=== PATIENT | female | born 1960 | race Caucasian/White ===

== ENCOUNTER → 2021-07-22 09:25 | Outpatient (CLI) | payer BC, SELFPAY ==
--- NOTE | ~2021-07-22 | MR_ITS ---
EXAMINATION: MR knee LT wo con DATE: 07/22/2021 10:35 INDICATION: Left knee pain TECHNIQUE: Magnetic resonance imaging (MRI) of the left knee was performed without intravenous contra st. Sequences included coronal PD-weighted FSE, coronal PD-weighted FS FSE, coronal fluid sensitive FSE STIR, sagittal T2-weighted FSE, sagittal PD-weighted FS FSE, sagittal PD-weighted FSE and axial PD weighted fat saturated FSE. COMPARISON: None. FINDINGS: Medial compartment: Medial meniscus is normal. Mild partial-thickness cartilage loss with chondral surface regularity cristiana ng the all but the posterior most weightbearing medial femoral condyle where the cartilage thickness is relatively preserved but there is deep chondral fissuring. There are few small foci of underlying increased marrow signal with the anterior and central weightbearing medial femoral condyle. Additiona l mild partial thickness cartilage loss along the medial tibial plateau with more focal deep chondral ulceration with underlying subarticular edema at the medial aspect of the medial tibial plateau. Lateral compartment: Lateral meniscus is normal. Articular cartilage is normal aside from small region of partial-thicknes s chondral fissuring without degenerative subchondral changes along the posterior margin of the later al tibial plateau. Patellofemoral compartment: Partial-thickness cartilage loss with deep fissuring at the medial tibial plateau. Shallow chondral s urface regularity at the patellar apical ridge and medial side of the lateral facet. Additional parti al thickness chondral fissuring and ulceration along the medial margin of the medial trochlea. Remain ing trochlear cartilage is normal. Ligaments and tendons: Anterior and posterior cruciate ligaments are normal. The medial collateral ligament and fibular tatianna ateral ligament complex are normal. The extensor mechanism is normal. The visualized medial and later al hamstring tendons as well as the iliotibial band are normal. Fluid: Small left knee joint effusion at the suprapatellar pouch. No loose osteochondral bodies identified. Osseous/other: Small bone island at the proximal tibia. Normal marrow signal separate previous noted small foci of s ubarticular edema at the weightbearing medial femoral condyle. No fracture or pathologic marrow repla cing process. Mild edema in the superficial suprapatellar fat pad which can be seen with fat pad impi ngement syndrome. IMPRESSION: 1. 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 2. Mild edema in the superficial suprapatellar fat pad which can be seen with fat pad impingement syn drome. Reviewed, dictated and finalized at location B. CHARGER IMPRESSION: 1. Mild medial compartment predominant tricompartmental osteoarthritis with mod erate and high-grade chondral malacia in the medial compartment and moderate gr mirian chondromalacia in the patellofemoral and lateral compartments. 2. Mild edema in the superficial suprapatellar fat pad which can be seen with f at pad impingement syndrome.
--- NOTE | ~2021-07-22 | MR_ITS ---
EXAMINATION: MR knee RT wo con DATE: 07/22/2021 10:53 INDICATION: Right knee pain TECHNIQUE: Magnetic resonance imaging (MRI) of the right knee was performed without intravenous contr ast. Sequences included coronal PD-weighted FSE, coronal PD-weighted FS FSE, coronal fluid sensitive FSE STIR, sagittal T2-weighted FSE, sagittal PD-weighted FS FSE, sagittal PD-weighted FSE and axial PD weighted fat saturated FSE. COMPARISON: 09/24/2016 FINDINGS: Medial compartment: Medial meniscus is normal. Partial-thickness cartilage loss with smooth chondral surface along the me dial tibial plateau and with mild chondral surface regularity along the anterior to central weightbea ring medial femoral condyle. Relatively preserved chondral thickness but with additional mild partial thickness chondral fissuring at the posterior weightbearing medial femoral condyle. Small region of new subarticular increased signal along the medial rim of the central weightbearing medial femoral co ndyle. Lateral compartment: Lateral meniscus is normal. Unchanged mild partial-thickness cartilage loss with smooth chondral surf manuel along the central weightbearing lateral femoral condyle. Patellofemoral compartment: Partial-thickness cartilage loss with fissuring and a few foci of minimal subarticular increased sign al along the medial patellar facet and caudal aspect of the apical ridge. Mild partial-thickness cart ilage loss with smooth chondral surface along the medial and lateral trochlea. Small region of new fo lisset chondral swelling and deep fissuring at the medial margin of the medial trochlea. Ligaments and tendons: Anterior and posterior cruciate ligaments are normal. Mild thickening without surrounding edema at th e proximal medial and fibular collateral ligaments consistent with mild scarring related to chronic s prains. The extensor mechanism is normal. The visualized medial and lateral hamstring tendons as well as the iliotibial band are normal. Fluid: Small right knee joint effusion. No loose osteochondral bodies identified. Osseous/other: Normal marrow signal. No fracture or pathologic marrow replacing process. Mild edema in the prepatell ar fat pad consistent with fat pad impingement syndrome. IMPRESSION: 1. Mild tricompartmental osteoarthritis without significant change aside from a new small region of i ncreased subarticular signal change at the medial rim of the central weightbearing medial femoral con dyle. 2. Mild edema in the suprapatellar fat pad consistent with fat pad impingement syndrome. Reviewed, dictated and finalized at location B. NING AND DEVELOPMENT COORDINATOR IMPRESSION: 1. Mild tricompartmental osteoarthritis without significant change aside from a new small region of increased subarticular signal change at the medial rim of the central weightbearing medial femoral condyle. 2. Mild edema in the suprapatellar fat pad consistent with fat pad impingement syndrome.
== END ==
PROVIDERS: PCP Family Medicine; Visit Provider Family Medicine
DX: M25.561 Pain in right knee (principal); M25.562 Pain in left knee; M17.0 Bilateral primary osteoarthritis of knee; M79.89 Other specified soft tissue disorders
CPT/HCPCS: 73721